=== PATIENT | female | born 1935 | race Caucasian/White ===

== ENCOUNTER → 2017-02-13 | Outpatient (CLI) | payer MEDICARE, OTHER, MEDICAID ==
[~2017-02-13] MED LIST: ACET-785 PO; CALC500T32 PO; CITA-49 PO; CYAN100T PO; DEXT1DRO10 BOTH EYES; DIAZ2.5K RECTALLY; DOCU-118 PO; FENT1PAT66 TD; FERR-70 PO; FOLI0.4T52 PO; GUAI5SYR PO; HEALTH SHAKE PO; HYDR-3995 PO; HYDR25SU RC; HYDR25SU11 RECTALLY; LEVE500T26 PO; LORA0.5T2 PO; LORA0.5T86 PO; MAG-37 PO; MENT71OI TOP; ONDA4TAB4 PO; PHEN100C84 PO; PHEN32.418 PO; PHEN32.43 PO; POLY17PO3 PO; QUET25TA PO; QUET50TA53 PO; [UNRECOGNIZED DRUG - CODE] PO
[2017-02-13 11:15] LABS: BLOOD, URINE 1+ (NEGATIVE); COLOR,URINE YELLOW (YELLOW); LEUKOCYTE ESTERASE ,URINE 3+ (NEGATIVE); NITRITE,URINE NEGATIVE (NEGATIVE); UROBILINOGEN,URINE 0.2 EU/DL (NORMAL)
[2017-02-13 11:31] LABS: BACTERIA,URINE 4+ (NEGATIVE); RBC,URINE 0-1 /HPF (0-3); SQUAMOUS EPITHELIAL CELL,UR 0-5; WBC,URINE 50-200 /HPF (0-5)
== END ==
LOC: LABN.KB 11:06
PROVIDERS: ATTEND Family Medicine
DX: N39.0 Urinary tract infection, site not specified (principal); R82.99 Other abnormal findings in urine
CPT/HCPCS: 81001; 87077; 87086; 87186